=== PATIENT | female | born 1955 | race Caucasian/White ===

== ENCOUNTER → 2023-04-06 10:25 | Outpatient (CLI) | payer OTHER, MEDICARE, SELFPAY ==
--- NOTE | ~2023-04-06 | US_ITS ---
EXAMINATION: US thyroid DATE: 04/06/2023 10:45 INDICATION: Localized swelling, mass and lump at the neck. Multinodular goiter. TECHNIQUE: Multiple ultrasound images of the thyroid were obtained. COMPARISON: None. FINDINGS: The right thyroid lobe measures 5.1 x 1.5 x 1.4 cm. The left thyroid lobe measures 5.7 x 3.5 x 3.1 c m. The thyroid isthmus measures 7 mm in maximal thickness. 8 mm solid wider than tall hypoechoic nodu le with smooth and ill-defined margins and without echogenic foci at the thyroid isthmus (TI-RADS 4, moderately suspicious , FNA if >=1.5 cm, annual followup is >=1 cm). Additional 1.1 cm TI RADS 4 wide r than tall solid hypoechoic nodule with smooth well-defined margins and without echogenic foci at th e inferior right thyroid lobe. 3.2 cm almost entirely cystic in the left thyroid lobe (TI-RADS 1, be nign, no FNA recommended). Smaller 7 mm TI-RADS 1 predominantly cystic nodules in the right thyroid l obe. There is normal echotexture, echogenicity and vascular flow throughout the thyroid gland. IMPRESSION: 1. Multinodular goiter including a 1.1 cm TI RADS 4 right thyroid nodule for which annual follow-up u ltrasound would be recommended. Reviewed, dictated and finalized at location A. IMPRESSION: 1. Multinodular goiter including a 1.1 cm TI RADS 4 right thyroid nodule for wh ich annual follow-up ultrasound would be recommended.
== END ==
PROVIDERS: PCP Physician Assistant Medical; Referring Provider Otolaryngology; Visit Provider Physician Assistant Medical
DX: R22.1 Localized swelling, mass and lump, neck (principal); E04.2 Nontoxic multinodular goiter
CPT/HCPCS: 76536

== ENCOUNTER 2023-05-31 12:38 | Outpatient (CLI) | payer MEDICARE, SELFPAY ==
--- NOTE | 2023-05-31 12:48 | ECHO_ITS ---
Patient Info Name: Jami Briones Age: 67 years : 1955 Gender: Female Ht: 63 in Wt: 177 lbs BSA: 1.92 m2 HR: 86 bpm BP: 183 / 99 mmHg Heart Rhythm: Sinus Rhythm Technical Quality: Good Exam Date: 05/31/2023 12:55 PM Exam Location: Echo Lab Patient Status: Outpatient Admit Date: 05/31/2023 Staff Ordering Physician: Beatriz Espino PA-C Hydroblaster: Nita Jansen RDCS Attending Provider: Beatriz Espino PA-C Referring Physician: Kenzie PATRICK; Exam Type: CA echo doppler color flow Study Info Indications - murmur Complete two-dimensional, color flow and Doppler transthoracic echocardiogram is performed. Summary 1. Complete two-dimensional, color flow and Doppler transthoracic echocardiogram is performed. 2. Normal left ventricular size with mild concentric hypertrophy, and also mild asymmetric septal hypertrophy which measures 1.5 cm. Hyperdynamic left ventricular systolic function, ejection fraction greater than 70%. No segmental wall motion abnormalities. Normal diastolic function. 3. Mildly elevated and somewhat late peaking left ventricular outflow tract velocity up to 2.0 cm. Suggests hypertrophic obstructive cardiomyopathy with a minimal intraventricular gradient at rest. No provocative maneuvers were performed. 4. No significant valve disease. 5. Normal sinus rhythm. Left Ventricle Left ventricular chamber dimension is normal. Left ventricular systolic function is hyperdynamic, estimated at >70%. There is mildly increased left ventricular wall thickness. Left ventricular septal wall motion is normal. The left ventricular diastolic function is normal. Right Ventricle Right ventricular chamber dimension is normal. Right ventricular systolic function is normal. Left Atria Left atrial chamber dimension is normal. Right Atria Right atrial chamber dimension is normal. Aortic Valve The aortic valve is trileaflet. There is no aortic valve sclerosis. There is no aortic valve stenosis. There is no aortic valve regurgitation. Pulmonic Valve The pulmonic valve is normal. There is no pulmonic valve stenosis. There is no pulmonic regurgitation. Mitral Valve The mitral valve has normal leaflets. There is no mitral valve stenosis. There is trace mitral valve regurgitation. Tricuspid Valve The tricuspid valve leaflets are normal. There is no significant tricuspid valve stenosis. There is trace tricuspid valve regurgitation. No pulmonary hypertension, estimated pulmonary arterial systolic pressure is 29 mmHg. Pericardium/Pleural The pericardium appears normal. There is no pericardial effusion. Inferior Vena Cava Normal inferior vena cava with >50% collapse upon inspiration consistent with Empty right atrial pressure, 10 mmHg. Aorta The aortic root size at the sinus of Valsalva is normal. The prox ascending aorta size is normal. Left Ventricular Outflow Tract Name Value Normal LVOT Doppler LVOT Peak Gradient 14 mmHg LVOT Mean Gradient 8 mmHg LVOT VTI 35 cm LVOT VTI/AV VTI Ratio 0.7 Pulmonic Valve Name Value Normal
== END 2023-05-31 12:39 | disposition home or self-care (01) ==
LOC: ANHCARD 12:39
PROVIDERS: PCP Physician Assistant Medical; Visit Provider Physician Assistant Medical
DX: I42.2 Other hypertrophic cardiomyopathy (principal); R01.1 Cardiac murmur, unspecified
CPT/HCPCS: 93306

== ENCOUNTER 2024-01-12 13:48 | Outpatient (CLI) | payer MEDICARE, SELFPAY ==
--- NOTE | ~2024-01-12 | US_ITS ---
EXAMINATION: US FNA w image guidance DATE: 01/12/2024 14:00 INDICATION: Left thyroid nodule. TECHNIQUE: The procedure and its benefits and risks were discussed with the patient. Risks specifically discusse d included bleeding. The patient verbalized understanding of the risks and agreed to proceed. The nec k was prepped and draped in the usual sterile manner. 1% lidocaine was used for local anesthesia. I aspirated the cystic portion of the left thyroid nodule with an 18-gauge spinal needle under ultrasou nd guidance yielding 3 mL red and marks fluid. 8 passes were made with a 25G needle into the residual l esion under ultrasound guidance. There were no immediate complications. FINDINGS: Grayscale ultrasound images demonstrate needles advanced into a 3.2 cm predominantly cystic nodule no dule in left thyroid lobe for biopsy. IMPRESSION: 1. Ultrasound-guided fine needle aspiration of left thyroid nodule. Reviewed, dictated and finalized at location A.
[2024-01-12 16:50] LABS: Free T4 Free Thyroxine 0.87 ng/mL (0.78-2.19)
[2024-01-16 13:43] LABS: Thyroid Peroxidase Antibodies 1 IU/mL (<9)
== END 2024-01-12 13:49 | disposition home or self-care (01) ==
PROVIDERS: PCP Physician Assistant Medical; Visit Provider Internal Medicine
DX: E04.2 Nontoxic multinodular goiter (principal)
CPT/HCPCS: 10005; 36415; 84439; 84443; 86376; 88172; 88173; 88305

== ENCOUNTER 2024-04-03 10:19 | Outpatient (CLI) | payer MEDICARE, SELFPAY ==
--- NOTE | ~2024-04-03 | US_ITS ---
EXAMINATION: US carotid duplex BI DATE: 04/03/2024 10:52 INDICATION: Syncope and collapse. Vertigo. TECHNIQUE: Grayscale, color Doppler, and pulsed Doppler images of the cervical carotid arteries were obtained. The degree of vessel stenosis is placed in one of the following categories: normal, <50%, 5 0-69%, >=70% but less than near-occlusion, near-occlusion, or total occlusion. Note that percent sten osis relative to normal distal artery lumen diameter is indirectly measured from velocity measurement s as described by James, et al. Radiology 2003; 229:340-346. COMPARISON: None. FINDINGS: RIGHT: The right common carotid artery (CCA) peak systolic velocity (PSV) is 102 cm/s. The right internal ca rotid artery (ICA) PSV is 103 cm/s. The right ICA end-diastolic velocity (EDV) is 36 cm/s. The right ICA/CCA PSV ratio is 1.0. Grayscale and color Doppler images yield an estimate of <50% diameter reduc tion from minimal plaque in the ICA. The external carotid artery (ECA) PSV is 129 cm/s. There is ante grade flow in the right vertebral artery. LEFT: The left CCA PSV is 77 cm/s. The left ICA PSV is 91 cm/s. The left ICA EDV is 33 cm/s. The left ICA/C CA PSV ratio is 1.2. Grayscale and color Doppler images yield an estimate of <50% diameter reduction from minimal plaque in the ICA. The ECA PSV is 115 cm/s. There is antegrade flow in the left vertebra l artery. IMPRESSION: 1. <50% stenosis from minimal plaque in the right internal carotid artery. 2. <50% stenosis from minimal plaque in the left internal carotid artery. Reviewed, dictated and finalized at location B.
== END 2024-04-03 10:20 | disposition home or self-care (01) ==
LOC: ANHIMG 10:20
PROVIDERS: PCP Physician Assistant Medical; Visit Provider Physician Assistant Medical
DX: R55 Syncope and collapse (principal); I65.23 Occlusion and stenosis of bilateral carotid arteries
CPT/HCPCS: 93880

== ENCOUNTER 2024-04-12 12:51 | Outpatient (CLI) | payer MEDICARE, SELFPAY ==
--- NOTE | ~2024-04-12 | US_ITS ---
EXAMINATION: US FNA w image guidance DATE: 04/12/2024 13:57 INDICATION: Left thyroid nodule TECHNIQUE: A time-out was performed to verify the patient's name, date of , and procedure to be performed . The procedure and its benefits and risks were discussed with the patient. Risks specifically discus sed included bleeding and infection. The patient understood the risks and agreed to proceed. The neck was prepped and draped in the usual sterile manner. 4 mL 1% lidocaine was used for local anesthesia . 7 passes were made with a 25G needle into the lesion. Appropriate needle location was documented with continuous sonographic guidance. A sterile bandage was applied. There were no immediate compli cations. FINDINGS: Grayscale ultrasound images demonstrate biopsy needles advanced into a 1.5 cm solid very hypoechoic T I RADS 5 nodule with lobular margins in the left thyroid lobe. IMPRESSION: 1. Successful ultrasound-guided fine needle aspiration of a 1.5 cm TI RADS 5 left thyroid nodule. Reviewed, dictated and finalized at location A.
== END 2024-04-12 12:52 | disposition home or self-care (01) ==
PROVIDERS: PCP Physician Assistant Medical; Visit Provider Internal Medicine
DX: E04.2 Nontoxic multinodular goiter (principal)
CPT/HCPCS: 10005; 88172; 88173; 88305

== ENCOUNTER 2024-06-28 15:17 | Outpatient (CLI) | payer MEDICARE, SELFPAY ==
--- NOTE | ~2024-06-28 | DEXA_ITS ---
Bone Density Report Name: JAN DEAN Age: 68 Sex: Female Ethnicity: White Date of : 1955 Indication: postmenopausal; screening for osteoporosis; Referring Provider: JOSE ELIAS GZUMAN I. Study: Bone densitometry was performed. Exam Date: June 28, 2024 Accession number: [id number] Bone Density: Region BMD T-score Z-score Classification AP Spine(L1-L4) 0.914 -1.2 0.8 Osteopenia Femoral Neck (Left) 0.727 -1.1 0.6 Osteopenia Total Hip (Left) 0.939 0.0 1.4 Normal Femoral Neck (Right) 0.680 -1.5 0.2 Osteopenia Total Hip (Right) 0.957 0.1 1.6 Normal Total Hip Mean 0.948 0.1 1.5 Normal World Health Organization criteria for BMD impression classify patients as: Normal (T-score at or above -1.0), Osteopenia (T-score between -1.0 and -2.5), or Osteoporosis (T-score at or below -2.5). 10-year Fracture Risk(1): Major Osteoporotic Fracture 9.6% Hip Fracture 1.3% Reported Risk Factors: [place] (), Neck BMD=0.680, BMI=29.2 (1) FRAX(R) Version 3.08. Fracture probability calculated for an untreated patient. Fracture probability may be lower if the patient has received treatment. Clinical Information Provided by Patient: Has used the following medications: daryl Patient maximum height was 64 Menopause Age: 48 Drinks caffeinated beverages Onset of menses at age 13 Number of children 3 Impression: The patient has low bone mass, based on the Right Femoral Neck T-score. The patient has an estimated ten-year risk of hip fracture of 1.3% and an estimated ten-year risk of major fracture of 9.6%, based on the WHO FRAX algorithm. Discussion: BONE DENSITY IS LOW AT ONE OR MORE SKELETAL SITES. This patient's lowest T-score is low at one or more skeletal sites. It meets the World Health Organization's (WHO) criteria for ?low bone mass? (T-score between -1.0 and -2.5). The patient's 10-year risk of fracture as calculated by FRAX is less than the threshold where pharmacological therapy is recommended by the National Osteoporosis Foundation (NOF). However, all treatment decisions require clinical judgment and consideration of individual patient factors, including patient preferences, comorbidities, previous drug use, risk factors not captured in the FRAX model (e.g., frailty, falls, vitamin D deficiency, increased bone turnover, interval significant decline in bone density) and possible under or overestimation of fracture risk by FRAX. The patient should follow a healthful lifestyle (good nutrition with adequate calcium and vitamin D, and appropriate weight-bearing exercise). Follow-Up: Consider repeating this study in 2 to 3 years to reassess this patient's status, or sooner if there is some new clinical indication. Reported by: STEFANY on 06/28/2024 4:15:00 PM. Reviewed, dictated and finalized at [facility]
== END 2024-06-28 15:18 | disposition home or self-care (01) ==
LOC: ANHIMG 15:19
PROVIDERS: PCP Physician Assistant Medical; Visit Provider Physician Assistant Medical
DX: M85.89 Other specified disorders of bone density and structure, multiple sites (principal); E28.39 Other primary ovarian failure
CPT/HCPCS: 77080

== ENCOUNTER 2025-03-22 15:22 | Outpatient (CLI) | payer MEDICARE, OTHER, SELFPAY ==
[2025-03-22 18:12] LABS: Free T4 Free Thyroxine 1.03 ng/dL (0.78-2.19)
[2025-03-22 18:27] LABS: Thyroid Stimulating Hormone 3.380 uIU/mL (0.465-4.680)
== END 2025-03-22 15:23 | disposition home or self-care (01) ==
PROVIDERS: PCP Physician Assistant Medical; Visit Provider Internal Medicine
DX: E04.2 Nontoxic multinodular goiter (principal)
CPT/HCPCS: 36415; 84439; 84443